=== PATIENT | male | born 1945 | race Caucasian/White ===

== ENCOUNTER 2018-02-26 17:40 | Inpatient (IN) | payer MEDICARE, MEDICAID ==
[~2018-02-26] VITALS: Ht 177.8 cm; Wt 103.5 kg
[2018-02-26 18:01] VITALS: BP 204/99; BMI 34.6
[2018-02-26] MEDS ORDERED: COREG12.5 MG PO (18:38)
[2018-02-26] MEDS ORDERED: GLIPIZIDE10 MG PO (18:39)
[2018-02-26 20:00] VITALS: BP 122/74
[2018-02-27 00:33] LABS: ALBUMIN 3.1 g/dL (3.4-5.0); ANION GAP 10.3 mmol/L (8-16); BILIRUBIN - TOTAL 0.33 mg/dL (0.2-1.3); CALCIUM 11.2 mg/dL (8.5-10.1); CARBON DIOXIDE 25.2 mmol/L (21.0-32.0); CREATININE - SERUM 6.7 mg/dL (0.6-1.3); POTASSIUM - SERUM 4.5 mmol/L (3.5-5.1); PROTEIN - SERUM 6.8 g/dL (6.4-8.2)
[2018-02-27 04:00] VITALS: BP 148/55
[2018-02-27 06:18] LABS: BASOPHILS 0.1 % (0-2); EOSINOPHILS 2.2 % (0-7); HEMATOCRIT 26.1 % (42.0-54.0); HEMOGLOBIN 8.3 g/dL (13.5-17.5); IMMATURE GRANULOCYTES 0.1 % (0-5); LYMPHOCYTES 26.4 % (15-50); MCH 27.1 pg (26.0-34.0); MCHC 31.8 g/dL (31.0-37.0); MCV 85.3 fL (80.0-100.0); MEAN PLATELET VOLUME 10.5 fL (7.4-10.4); MONOCYTES 12.1 % (2-11); NEUTROPHILS 59.1 % (40-80); PLATELET COUNT 183 10x3/uL (130-400); RBC 3.06 10x6/uL (4.20-6.10); WBC 6.7 10x3/uL (4.8-10.8)
[2018-02-27 06:31] LABS: ANION GAP 14.6 mmol/L (8-16); CARBON DIOXIDE 22.4 mmol/L (21.0-32.0); CREATININE - SERUM 6.7 mg/dL (0.6-1.3); PHOSPHOROUS 6.3 mg/dL (2.5-4.9)
[2018-02-27 06:34] LABS: CALCIUM 8.2 mg/dL (8.5-10.1)
[2018-02-27 06:40] LABS: INR 1.04 (0.85-1.17); PROTIME 13.2 SECONDS (11.6-15.0)
[2018-02-27 10:37] VITALS: Ht 177.8 cm; Wt 103.5 kg
[2018-02-27 12:30] VITALS: BP 155/73
[2018-02-27 21:38] VITALS: BP 148/68
[2018-02-28 04:11] LABS: BASOPHILS 0.3 % (0-2); EOSINOPHILS 2.5 % (0-7); HEMATOCRIT 28.3 % (42.0-54.0); LYMPHOCYTES 31.8 % (15-50); MCH 26.9 pg (26.0-34.0); MCHC 31.8 g/dL (31.0-37.0); MCV 84.7 fL (80.0-100.0); MEAN PLATELET VOLUME 9.9 fL (7.4-10.4); MONOCYTES 13.9 % (2-11); NEUTROPHILS 51.5 % (40-80); PLATELET COUNT 186 10x3/uL (130-400); RBC 3.34 10x6/uL (4.20-6.10); RDW 14.7 % (11.5-14.5); WBC 7.1 10x3/uL (4.8-10.8)
[2018-02-28 04:32] LABS: ANION GAP 13.1 mmol/L (8-16); CALCIUM 7.9 mg/dL (8.5-10.1); PHOSPHOROUS 4.9 mg/dL (2.5-4.9)
[2018-02-28 04:39] LABS: CREATININE - SERUM 4.5 mg/dL (0.6-1.3); POTASSIUM - SERUM 4.1 mmol/L (3.5-5.1)
[2018-02-28 06:28] VITALS: BP 115/79
[2018-02-28 08:19] LABS: HEPATITIS C ANTIBODY <0.1 (0.0-0.9)
[2018-02-28 08:31] VITALS: BP 106/73
[2018-02-28 14:12] VITALS: BP 106/70
[2018-02-28 16:20] VITALS: BP 147/79
[2018-02-28 21:10] VITALS: BP 131/74
[2018-03-01 01:02] VITALS: BP 145/73
[2018-03-01 04:41] LABS: BASOPHILS 0.3 % (0-2); EOSINOPHILS 3.5 % (0-7); HEMATOCRIT 24.7 % (42.0-54.0); HEMOGLOBIN 7.9 g/dL (13.5-17.5); IMMATURE GRANULOCYTES 0.2 % (0-5); LYMPHOCYTES 32.8 % (15-50); MCH 27.1 pg (26.0-34.0); MCV 84.9 fL (80.0-100.0); MEAN PLATELET VOLUME 9.7 fL (7.4-10.4); MONOCYTES 13.8 % (2-11); NEUTROPHILS 49.4 % (40-80); PLATELET COUNT 169 10x3/uL (130-400); RBC 2.91 10x6/uL (4.20-6.10); RDW 14.6 % (11.5-14.5); WBC 6.5 10x3/uL (4.8-10.8)
[2018-03-01 05:15] LABS: ANION GAP 16.5 mmol/L (8-16); CALCIUM 7.9 mg/dL (8.5-10.1); CARBON DIOXIDE 25.4 mmol/L (21.0-32.0); PHOSPHOROUS 5.7 mg/dL (2.5-4.9); POTASSIUM - SERUM 3.9 mmol/L (3.5-5.1)
[2018-03-01 05:17] LABS: CREATININE - SERUM 6.3 mg/dL (0.6-1.3)
[2018-03-01 05:51] VITALS: BP 145/71
[2018-03-01 08:30] VITALS: BP 185/83
[2018-03-01 12:58] VITALS: BP 141/79
[2018-03-01 16:11] VITALS: BP 147/87
[2018-03-02 00:20] VITALS: BP 135/50
[2018-03-02 04:57] LABS: BASOPHILS 0.3 % (0-2); EOSINOPHILS 4.6 % (0-7); HEMOGLOBIN 8.4 g/dL (13.5-17.5); IMMATURE GRANULOCYTES 0.2 % (0-5); LYMPHOCYTES 34.7 % (15-50); MCH 27.4 pg (26.0-34.0); MCHC 32.3 g/dL (31.0-37.0); MCV 84.7 fL (80.0-100.0); MEAN PLATELET VOLUME 9.8 fL (7.4-10.4); NEUTROPHILS 47.2 % (40-80); PLATELET COUNT 177 10x3/uL (130-400); RBC 3.07 10x6/uL (4.20-6.10); RDW 14.4 % (11.5-14.5); WBC 6.6 10x3/uL (4.8-10.8)
[2018-03-02 05:09] LABS: ANION GAP 12.7 mmol/L (8-16); CALCIUM 8.3 mg/dL (8.5-10.1); CARBON DIOXIDE 28.3 mmol/L (21.0-32.0); CREATININE - SERUM 4.8 mg/dL (0.6-1.3)
[2018-03-02 05:44] VITALS: BP 139/75
[2018-03-02 13:33] VITALS: BP 134/68
[2018-03-02 16:28] VITALS: BP 127/62
[2018-03-02 20:46] VITALS: BP 147/78
[2018-03-03 05:52] VITALS: BP 120/48
[2018-03-03 05:53] LABS: BASOPHILS 0.4 % (0-2); EOSINOPHILS 3.7 % (0-7); HEMATOCRIT 24.6 % (42.0-54.0); HEMOGLOBIN 7.9 g/dL (13.5-17.5); IMMATURE GRANULOCYTES 0.7 % (0-5); LYMPHOCYTES 32.3 % (15-50); MCH 27.3 pg (26.0-34.0); MCHC 32.1 g/dL (31.0-37.0); MCV 85.1 fL (80.0-100.0); MEAN PLATELET VOLUME 10.2 fL (7.4-10.4); MONOCYTES 14.9 % (2-11); PLATELET COUNT 182 10x3/uL (130-400); RBC 2.89 10x6/uL (4.20-6.10); RDW 14.4 % (11.5-14.5); WBC 6.8 10x3/uL (4.8-10.8)
[2018-03-03 06:16] LABS: ANION GAP 15.8 mmol/L (8-16); CALCIUM 7.9 mg/dL (8.5-10.1); CARBON DIOXIDE 26.1 mmol/L (21.0-32.0); PHOSPHOROUS 5.3 mg/dL (2.5-4.9); POTASSIUM - SERUM 3.9 mmol/L (3.5-5.1)
[2018-03-03 08:38] VITALS: BP 141/80
[2018-03-03 11:48] VITALS: BP 136/70
[2018-03-03 15:56] VITALS: BP 141/76
[2018-03-03 21:53] VITALS: BP 136/67
[2018-03-04 05:44] LABS: ANION GAP 12.2 mmol/L (8-16); CALCIUM 7.8 mg/dL (8.5-10.1); CARBON DIOXIDE 26.6 mmol/L (21.0-32.0); POTASSIUM - SERUM 3.8 mmol/L (3.5-5.1)
[2018-03-04 06:36] LABS: BASOPHILS 0.3 % (0-2); EOSINOPHILS 3.4 % (0-7); HEMATOCRIT 23.5 % (42.0-54.0); HEMOGLOBIN 7.6 g/dL (13.5-17.5); IMMATURE GRANULOCYTES 0.2 % (0-5); LYMPHOCYTES 34.4 % (15-50); MCH 27.5 pg (26.0-34.0); MCHC 32.3 g/dL (31.0-37.0); MCV 85.1 fL (80.0-100.0); MEAN PLATELET VOLUME 10.1 fL (7.4-10.4); MONOCYTES 11.1 % (2-11); NEUTROPHILS 50.6 % (40-80); PLATELET COUNT 194 10x3/uL (130-400); RBC 2.76 10x6/uL (4.20-6.10); RDW 14.5 % (11.5-14.5); WBC 6.4 10x3/uL (4.8-10.8)
[2018-03-04 06:56] VITALS: BP 134/69
[2018-03-04 09:03] VITALS: BP 155/74
[2018-03-05 05:15] LABS: BASOPHILS 0.1 % (0-2); EOSINOPHILS 3.2 % (0-7); HEMATOCRIT 26.4 % (42.0-54.0); HEMOGLOBIN 8.5 g/dL (13.5-17.5); IMMATURE GRANULOCYTES 0.3 % (0-5); LYMPHOCYTES 23.1 % (15-50); MCH 27.4 pg (26.0-34.0); MCHC 32.2 g/dL (31.0-37.0); MCV 85.2 fL (80.0-100.0); MEAN PLATELET VOLUME 10.1 fL (7.4-10.4); NEUTROPHILS 61.3 % (40-80); PLATELET COUNT 209 10x3/uL (130-400); RDW 14.5 % (11.5-14.5); WBC 7.8 10x3/uL (4.8-10.8)
[2018-03-05 05:30] LABS: ANION GAP 14.2 mmol/L (8-16); CALCIUM 8.1 mg/dL (8.5-10.1); CARBON DIOXIDE 28.8 mmol/L (21.0-32.0); CREATININE - SERUM 4.9 mg/dL (0.6-1.3)
[2018-03-05 09:00] VITALS: BP 106/57
[2018-03-05 12:12] VITALS: BP 112/69
[2018-03-05] MEDS ORDERED: PROTONIX40 MG PO (12:24)
== END 2018-03-05 14:40 | disposition home or self-care (01) | DRG 673 ==
LOC: D.M2 17:40
PROVIDERS: Internal Medicine Nephrology; Surgery
PROC: 5A1D70Z Performance of Urinary Filtration, Intermittent, Less than 6 Hours Per Day (ICD-10-PCS; 2018-02-26)
PROC: 02HV33Z Insertion of Infusion Device into Superior Vena Cava, Percutaneous Approach (ICD-10-PCS; 2018-02-27)
PROC: B5181ZA Fluoroscopy of Superior Vena Cava using Low Osmolar Contrast, Guidance (ICD-10-PCS; 2018-02-27)
PROC: 0JH63XZ Insertion of Tunneled Vascular Access Device into Chest Subcutaneous Tissue and Fascia, Percutaneous Approach (ICD-10-PCS; principal; 2018-02-27 07:30)
DX: I12.0 Hypertensive chronic kidney disease with stage 5 chronic kidney disease or end stage renal disease (principal); N18.6 End stage renal disease; E87.2 Acidosis; E87.5 Hyperkalemia; E11.22 Type 2 diabetes mellitus with diabetic chronic kidney disease; Z99.2 Dependence on renal dialysis; D63.1 Anemia in chronic kidney disease; N25.0 Renal osteodystrophy; R97.20 Elevated prostate specific antigen [PSA]; I25.10 Atherosclerotic heart disease of native coronary artery without angina pectoris; Z87.891 Personal history of nicotine dependence

== ENCOUNTER → 2018-05-12 08:51 | Day surgery (SDC) | payer MEDICARE, MEDICAID ==
[2018-02-27 10:37] VITALS: BMI 34.5
[~2018-05-12 08:51] MED LIST: COREG12.5 MG PO; GLIPIZIDE10 MG PO; PROTONIX40 MG PO
== END | disposition home or self-care (01) ==
LOC: D.OPS 08:51
DX: N18.6 End stage renal disease (principal); Z53.9 Procedure and treatment not carried out, unspecified reason; Z01.812 Encounter for preprocedural laboratory examination

== ENCOUNTER 2018-05-19 09:49 | Outpatient (CLI) | payer MEDICARE ==
[~2018-05-19] VITALS: Ht 177.8 cm; Wt 104.3 kg
[2018-05-19 11:48] LABS: BASOPHILS 0.6 % (0-2); EOSINOPHILS 6.7 % (0-7); HEMATOCRIT 37.6 % (42.0-54.0); HEMOGLOBIN 11.9 g/dL (13.5-17.5); IMMATURE GRANULOCYTES 0.2 % (0-5); LYMPHOCYTES 32.1 % (15-50); MCH 28.5 pg (26.0-34.0); MCHC 31.6 g/dL (31.0-37.0); MEAN PLATELET VOLUME 10.4 fL (7.4-10.4); MONOCYTES 8.5 % (2-11); NEUTROPHILS 51.9 % (40-80); RBC 4.18 10x6/uL (4.20-6.10); RDW 15.1 % (11.5-14.5); WBC 8.5 10x3/uL (4.8-10.8)
[2018-05-19 11:50] LABS: PLATELET COUNT 260 10x3/uL (130-400)
[2018-05-19 12:08] LABS: APTT 30.3 SECONDS (22.8-39.4); INR 1.01 (0.85-1.17); PROTIME 12.8 SECONDS (11.6-15.0)
[2018-05-19 12:16] LABS: ANION GAP 14.2 mmol/L (8-16); CALCIUM 9.2 mg/dL (8.5-10.1); CARBON DIOXIDE 28.4 mmol/L (21.0-32.0); CREATININE - SERUM 5.7 mg/dL (0.6-1.3); POTASSIUM - SERUM 4.6 mmol/L (3.5-5.1)
[2018-05-19] MEDS ORDERED: BAYER CHEWABLE81 MG PO (12:43)
[2018-05-19 12:57] VITALS: BP 157/86; Ht 177.8 cm; Wt 104.3 kg
== END 2018-05-19 09:50 | disposition home or self-care (01) ==
LOC: D.OPS 09:49
PROVIDERS: Internal Medicine Nephrology
DX: Z53.8 Procedure and treatment not carried out for other reasons (principal); Z01.812 Encounter for preprocedural laboratory examination